=== PATIENT | male | born 1985 ===

== ENCOUNTER 2024-05-01 19:42 | Emergency (ER) | payer SELFPAY ==
[2024-05-01 19:43] VITALS: BP 178/113; PULSE 106; RESP 18; TEMP 36.5; O2SAT 100; BMI 29.5
--- NOTE | 2024-05-01 22:58 | ED.RN ---
called for pt at 1416 with no answer
== END 2024-05-01 23:03 | disposition left against medical advice (07) ==
LOC: ED 23:02
DX: M79.89 Other specified soft tissue disorders (principal); F41.9 Anxiety disorder, unspecified; Z53.21 Procedure and treatment not carried out due to patient leaving prior to being seen by health care provider